=== PATIENT | male | born 1995 | race Two or more races ===

== ENCOUNTER → 2021-12-01 | Outpatient (CLI) | payer OTHER | LOC: M RAD 10:41 | PROVIDERS: ATTEND Otolaryngology | DX: J32.9 Chronic sinusitis, unspecified (principal) ==

== ENCOUNTER 2022-01-19 08:00 | Day surgery (SDC) | payer OTHER ==
[~2022-01-19] VITALS: Ht 177.8 cm; Wt 77.9 kg
[2022-01-19] MEDS ORDERED: ROCURONIUM BROMIDE 50 MG/5 ML VIAL As Ordered ONE (08:41)
[2022-01-19] MEDS ORDERED: fentaNYL 250 MCG/5 ML INJECTION As Ordered ONE (08:41)
[2022-01-19] MEDS ORDERED: propofoL 200 MG/20 ML VIAL As Ordered ONE ×2 (08:41→12:27)
[2022-01-19] MEDS ORDERED: LIDOCAINE 2% 100MG/5ML SDV (FOR ANES.) As Ordered ONE (08:41)
[2022-01-19] MEDS ORDERED: MIDAZOLAM INJ 2MG/2ML VIAL (J2250 PER 1MG) As Ordered ONE (08:42)
[2022-01-19] MEDS ORDERED: LR 1,000 ML IV SCH ×2 (10:45→13:15)
[2022-01-19] MEDS ORDERED: COCAINE 4% 4ML NASAL SOLUTION BTL As Ordered ONE (10:50)
[2022-01-19] MEDS ORDERED: METHYLENE BLUE 0.5% (5MG/ML) 10 ML AMP (PROVAYBLUE) As Ordered ONE (10:50)
[2022-01-19] MEDS ORDERED: LIDOCAINE W/EPINEPHRINE 1% 20ML VIAL As Ordered ONE (10:50)
[2022-01-19] MEDS ORDERED: OXYMETAZOLINE 0.05% NASAL SPRAY (AFRIN) As Ordered ONE (10:50)
[2022-01-19] MEDS ORDERED: KETOROLAC 60MG 2ML VIAL As Ordered ONE (11:55)
[2022-01-19] MEDS ORDERED: ONDANSETRON 4MG 2ML VIAL As Ordered ONE (11:55)
[2022-01-19] MEDS ORDERED: ACETAMINOPHEN 1000MG 100ML IV BTL (OFIRMEV) (J0131 PER 10MG) As Ordered ONE (11:55)
[2022-01-19] MEDS ORDERED: dexameTHASONE 4 MG/ML 1ML VIAL (J1100 PER 1MG) As Ordered ONE (11:55)
[2022-01-19] MEDS ORDERED: SUGAMMADEX SODIUM 500 MG/5 ML VIAL (BRIDION) As Ordered ONE (11:58)
[2022-01-19] MEDS ORDERED: fentaNYL 100 MCG/2 ML INJECTION As Ordered ONE (12:01)
[2022-01-19] MEDS ORDERED: METOCLOPRAMIDE INJ 10MG/2ML VIAL (J2765 PER 1) IV PRN (13:15)
[2022-01-19] MEDS ORDERED: fentaNYL 100 MCG/2 ML INJECTION IV PRN (13:15)
[2022-01-19] MEDS ORDERED: MEPERIDINE INJ 25 MG/ML VIAL (J2175) IV PRN (13:15)
[2022-01-19] MEDS ORDERED: ONDANSETRON 4MG 2ML VIAL IV PRN (13:15)
[2022-01-19] MEDS ORDERED: oxyCODONE 5MG TAB PO PRN (13:15)
[2022-01-19 14:29] VITALS: BP 160/88
== END 2022-01-19 14:46 | disposition home or self-care (01) ==
LOC: M SDC 08:00
PROVIDERS: ATTEND Otolaryngology
DX: J32.9 Chronic sinusitis, unspecified (principal); J33.0 Polyp of nasal cavity; R09.81 Nasal congestion; Z79.899 Other long term (current) drug therapy; Z88.6 Allergy status to analgesic agent; F17.290 Nicotine dependence, other tobacco product, uncomplicated
CPT/HCPCS: 31255; 31267; 31296; 61782; 88305; C9046; J0131; J1100; J1885; J2250; J2405; J3010; Q9968

== ENCOUNTER 2023-02-10 15:17 | Emergency (ER) | payer OTHER ==
[~2023-02-10] VITALS: Ht 177.8 cm; Wt 90.6 kg
[2023-02-10 15:46] VITALS: O2SAT 90
[2023-02-10 16:25] LABS: RSV AMPLIFICATION NEGATIVE (NEGATIVE)
[2023-02-10] MEDS ORDERED: dexAMETHasone 20MG/5ML VIAL IV ONE (17:10)
[2023-02-10] MEDS ORDERED: IPRATROPIUM 0.5MG/ALBUTEROL 2.5MG INH SOL UD 3ML (DUONEB) NEB ONE (17:10)
[2023-02-10] MEDS ORDERED: AUGMENTIN 875 MG TAB PO ONE (18:25)
[2023-02-10] MEDS ORDERED: PRED20TA PO (18:28)
[2023-02-10] MEDS ORDERED: AMOX875T2 PO (18:28)
[2023-02-10] MEDS ORDERED: VENTAER INH (18:28)
[2023-02-10 18:40] VITALS: BP 140/75; TEMP 98; O2SAT 98
== END 2023-02-10 18:48 | disposition home or self-care (01) ==
LOC: M ED 15:17
DX: J20.9 Acute bronchitis, unspecified (principal); J01.90 Acute sinusitis, unspecified; Z88.8 Allergy status to other drugs, medicaments and biological substances
CPT/HCPCS: 71046; 87631; 94640; 96374; 99284; J1100

== ENCOUNTER 2023-02-19 08:29 | Observation (INO) | payer OTHER ==
[~2023-02-19] VITALS: Ht 177.8 cm; Wt 91.4 kg
[~2023-02-19 08:29] MED LIST: AMOX875T2 PO; PRED20TA PO; VENTAER INH
[2023-02-19] MEDS ORDERED: methylPREDNISolone 125MG 2ML VIAL IV ONE (08:55)
[2023-02-19 09:35] LABS: BASO % 0.3 % (0.0-1.0); EOS # 1.1 10^3/uL (0.0-0.5); EOS % 10.6 % (0.0-3.0); HEMATOCRIT 44.3 % (42.0-52.0); HEMOGLOBIN 14.9 g/dl (13.5-17.5); LYMPH # 1.4 10^3/uL (1.5-5.0); LYMPH % 13.4 % (24.0-44.0); MEAN CORPUSCULAR HEMOGLOBIN 29.9 pg (27.0-33.0); MEAN CORPUSCULAR HGB CONC 33.6 g/dl (32.0-36.5); MONO # 0.7 10^3/uL (0.0-0.8); MONO % 6.9 % (2.0-8.0); NEUTROPHILS # 7.1 10^3/uL (1.5-8.5); NEUTROPHILS % 67.9 % (36.0-66.0); PLATELET COUNT, AUTOMATED 245 10^3/uL (150-450); RED BLOOD COUNT 4.98 10^6/uL (4.30-6.10); WHITE BLOOD COUNT 10.4 10^3/uL (4.0-10.0)
[2023-02-19] MEDS: ALBUTEROL SULFATE 2.5MG/0.5ML INH NEB SOLN INH PRN ×2 (09:52→09:53)
[2023-02-19] MEDS ORDERED: ALBUTEROL SULFATE 2.5MG/0.5ML INH NEB SOLN NEB ONE (10:00)
[2023-02-19 10:08] LABS: ALBUMIN 4.1 G/DL (3.2-5.2); ALKALINE PHOSPHATASE 73 U/L (46-116); ALT/SGPT 42 U/L (7.0-40); AST/SGOT 32 U/L (<34); BILIRUBIN,DIRECT 0.2 MG/DL (<0.4); BILIRUBIN,TOTAL 0.7 MG/DL (0.3-1.2); BLOOD UREA NITROGEN 12 MG/DL (9-23); CALCIUM LEVEL 9.3 MG/DL (8.5-10.1); CARBON DIOXIDE LEVEL 25 MMOL/L (20-31); CHLORIDE LEVEL 104 MMOL/L (98-107); CREATININE FOR GFR 0.86 MG/DL (0.70-1.30); GLOMERULAR FILTRATION RATE > 60.0 (>60); GLUCOSE, FASTING 81 MG/DL (60-100); POTASSIUM SERUM 4.6 MMOL/L (3.5-5.1); SODIUM LEVEL 137 MMOL/L (136-145); TOTAL PROTEIN 7.1 G/DL (5.7-8.2)
[2023-02-19] MEDS ORDERED: IPRATROPIUM 0.5MG/ALBUTEROL 2.5MG INH SOL UD 3ML (DUONEB) NEB ONE (11:25)
[2023-02-19 11:43] VITALS: O2SAT 97
[2023-02-19] MEDS: MAG SULF 1GM/100ML (MAG RUN) 1 GM in IV 1 EA IV SCH ×2 (12:06→12:26)
[2023-02-19] MEDS ORDERED: MED REC IN PROGRESS XX SCH (12:20)
[2023-02-19] MEDS ORDERED: MOM 30ML SUSPENSION UDC PO PRN (12:50)
[2023-02-19] MEDS ORDERED: ACETAMINOPHEN TAB 650MG DOSE (2X325MG) PO PRN (12:50)
[2023-02-19] MEDS ORDERED: MAALOX 30 ML SUSP *UDC PO PRN (12:50)
[2023-02-19] MEDS ORDERED: HOME MED LIST COMPLETE! XX SCH (13:15)
[2023-02-19] MEDS: AZITHROMYCIN 250MG TABLET PO SCH (13:19)
[2023-02-19] MEDS: guaiFENesin ER TABLET 600 MG TAB PO SCH ×2 (13:20→20:59)
[2023-02-19 13:44] LABS: PROCALCITONIN <0.04 ng/ml
[2023-02-19] MEDS: SODIUM CHLORIDE HYPERTONIC 3% 4ML NEB SOL INH SCH ×2 (14:00→20:00)
[2023-02-19] MEDS: IPRATROPIUM 0.5MG/ALBUTEROL 2.5MG INH SOL UD 3ML (DUONEB) NEB SCH ×2 (14:00→21:41)
[2023-02-19] MEDS: ENOXAPARIN 40MG/0.4ML SYRINGE (J1650 PER 10MG) SC SCH (14:09)
[2023-02-19 15:47] VITALS: BP 153/82; TEMP 98.2; O2SAT 95
[2023-02-19 20:53] VITALS: BP 149/78; TEMP 98.1; O2SAT 93
[2023-02-19] MEDS: methylPREDNISolone 125MG 2ML VIAL IV SCH (20:59)
[2023-02-20] MEDS: SODIUM CHLORIDE HYPERTONIC 3% 4ML NEB SOL INH SCH ×2 (02:09→07:20)
[2023-02-20] MEDS: IPRATROPIUM 0.5MG/ALBUTEROL 2.5MG INH SOL UD 3ML (DUONEB) NEB SCH ×2 (02:09→07:20)
[2023-02-20 06:00] VITALS: BP 151/81; TEMP 97.6; O2SAT 93
[2023-02-20 06:05] LABS: HEMOGLOBIN 14.8 g/dl (13.5-17.5); MEAN CORPUSCULAR HEMOGLOBIN 29.6 pg (27.0-33.0); MEAN CORPUSCULAR HGB CONC 33.6 g/dl (32.0-36.5); PLATELET COUNT, AUTOMATED 301 10^3/uL (150-450); WHITE BLOOD COUNT 15.2 10^3/uL (4.0-10.0)
[2023-02-20 06:44] LABS: BLOOD UREA NITROGEN 19 MG/DL (9-23); CALCIUM LEVEL 9.2 MG/DL (8.5-10.1); CARBON DIOXIDE LEVEL 23 MMOL/L (20-31); CHLORIDE LEVEL 103 MMOL/L (98-107); CREATININE FOR GFR 0.84 MG/DL (0.70-1.30); GLOMERULAR FILTRATION RATE > 60.0 (>60); GLUCOSE, FASTING 122 MG/DL (60-100); MAGNESIUM LEVEL 2.3 MG/DL (1.8-2.4); POTASSIUM SERUM 4.5 MMOL/L (3.5-5.1); SODIUM LEVEL 136 MMOL/L (136-145)
[2023-02-20] MEDS: ENOXAPARIN 40MG/0.4ML SYRINGE (J1650 PER 10MG) SC SCH (08:02)
[2023-02-20] MEDS: guaiFENesin ER TABLET 600 MG TAB PO SCH (08:02)
[2023-02-20] MEDS: AZITHROMYCIN 250MG TABLET PO SCH (08:03)
[2023-02-20] MEDS: methylPREDNISolone 125MG 2ML VIAL IV SCH (09:34)
[2023-02-20] MEDS ORDERED: DOXY-444 PO (10:03)
[2023-02-20] MEDS ORDERED: NICO14DI31 TOP (10:03)
[2023-02-20] MEDS ORDERED: CEPH500C PO (10:03)
[2023-02-20] MEDS ORDERED: PRED20TA PO (10:03)
[2023-02-20 18:07] LABS: MYCOPLASMA PNEUMONIAE IgG 123 U/mL (0-99); MYCOPLASMA PNEUMONIAE IgM <770 U/mL (0-769)
[2023-02-22 15:12] LABS: BODY FLUID CULTURE Not indicated. (.); ORGANISM ID Not indicated. (.); SPECIMEN SOURCE Urine (.); URINE STREP PNEUMONIAE ANTIGEN Negative (Negative)
== END 2023-02-20 11:05 | disposition home or self-care (01) ==
LOC: M ED 08:29 → EDBD 08:29 → M ED INP 08:30 → M MSPAV 15:45
PROVIDERS: ADMIT Student in an Organized Health Care Education/Training Program; ATTEND Internal Medicine
DX: J47.9 Bronchiectasis, uncomplicated (principal); R05.8 Other specified cough; J32.9 Chronic sinusitis, unspecified; D75.A Glucose-6-phosphate dehydrogenase (G6PD) deficiency without anemia; F17.290 Nicotine dependence, other tobacco product, uncomplicated; Z88.6 Allergy status to analgesic agent; Z83.3 Family history of diabetes mellitus; Z82.49 Family history of ischemic heart disease and other diseases of the circulatory system
CPT/HCPCS: 36415; 71046; 71250; 80048; 80076; 83735; 84145; 85025; 85027; 86140; 86738; 87040; 87077; 87186; 87205; 87486; 87581; 87633; 87641; 87798; 87899; 93041; 94640; 94760; 96365; 96366; 96372; 96375; 96376; 99285; J1650; J2930; J3475

== ENCOUNTER 2023-04-14 03:13 | Emergency (ER) | payer OTHER ==
[~2023-04-14] VITALS: Ht 167.6 cm; Wt 95.0 kg
[~2023-04-14 03:13] MED LIST changes: +CEPH500C PO; +DOXY-444 PO; +NICO14DI31 TOP
[2023-04-14] MEDS: IPRATROPIUM 0.5MG/ALBUTEROL 2.5MG INH SOL UD 3ML (DUONEB) NEB PRN ×3 (04:23→04:53)
[2023-04-14 04:39] LABS: BASO # 0.1 10^3/uL (0.0-0.2); BASO % 1.1 % (0.0-1.0); EOS # 1.1 10^3/uL (0.0-0.5); EOS % 19.4 % (0.0-3.0); HEMATOCRIT 40.4 % (42.0-52.0); HEMOGLOBIN 13.5 g/dl (13.5-17.5); LYMPH # 1.6 10^3/uL (1.5-5.0); LYMPH % 29.3 % (24.0-44.0); MEAN CORPUSCULAR HGB CONC 33.4 g/dl (32.0-36.5); MEAN CORPUSCULAR VOLUME 89.8 fl (80.0-96.0); MONO # 0.4 10^3/uL (0.0-0.8); MONO % 6.7 % (2.0-8.0); NEUTROPHILS # 2.3 10^3/uL (1.5-8.5); NEUTROPHILS % 43.1 % (36.0-66.0); PLATELET COUNT, AUTOMATED 232 10^3/uL (150-450); WHITE BLOOD COUNT 5.4 10^3/uL (4.0-10.0)
[2023-04-14 04:43] LABS: VENOUS BASE EXCESS -1.7 (-2.0-2.0); VENOUS O2 SATURATION 94.3 % (60.0-80.0); VENOUS PARTIAL PRESSURE CO2 44.2 mmHg (38.0-50.0); VENOUS PARTIAL PRESSURE O2 75.4 mmHg (30.0-50.0); VENOUS PH 7.352 UNITS (7.330-7.430); VENOUS STANDARD HCO3 22.9 MMOL/L; VENOUS TOTAL CO2 25.3 MMOL/L (24.0-28.0)
[2023-04-14 04:49] LABS: CK-MB VALUE MASS < 1.0 NG/ML (<3.6)
[2023-04-14 04:51] LABS: ALKALINE PHOSPHATASE 59 U/L (46-116); ALT/SGPT 42 U/L (7.0-40); AST/SGOT 24 U/L (<34); BILIRUBIN,DIRECT 0.1 MG/DL (<0.4); BILIRUBIN,TOTAL 0.5 MG/DL (0.3-1.2); BLOOD UREA NITROGEN 11 MG/DL (9-23); CALCIUM LEVEL 9.2 MG/DL (8.5-10.1); CARBON DIOXIDE LEVEL 26 MMOL/L (20-31); CHLORIDE LEVEL 108 MMOL/L (98-107); CPK CREATINE PHOSPHOKINASE 217 U/L (46-171); GLOMERULAR FILTRATION RATE > 60.0 (>60); GLUCOSE, FASTING 101 MG/DL (60-100); MB/CK RELATIVE INDEX 0.46 (< OR =4); POTASSIUM SERUM 3.8 MMOL/L (3.5-5.1); SODIUM LEVEL 144 MMOL/L (136-145); TOTAL PROTEIN 6.5 G/DL (5.7-8.2)
[2023-04-14] MEDS ORDERED: ISOVUE-370 76% 100ML VIAL As Ordered ONE (07:14)
[2023-04-14] MEDS ORDERED: PRED10TA2 PO (09:48)
[2023-04-14 10:05] VITALS: BP 125/73; TEMP 97.8; O2SAT 95
== END 2023-04-14 10:17 | disposition home or self-care (01) ==
LOC: M ED 03:13
DX: R06.02 Shortness of breath (principal); Z87.891 Personal history of nicotine dependence; Z88.8 Allergy status to other drugs, medicaments and biological substances; Z79.51 Long term (current) use of inhaled steroids; Z79.899 Other long term (current) drug therapy; Z79.52 Long term (current) use of systemic steroids; Z79.2 Long term (current) use of antibiotics
CPT/HCPCS: 36415; 71046; 71275; 80048; 80076; 82550; 82553; 82803; 83880; 84484; 85025; 85379; 87040; 87486; 87581; 87633; 87798; 93005; 93041; 94640; 94760; 99285; Q9967

== ENCOUNTER → 2024-07-28 | Outpatient (CLI) | payer OTHER ==
[~2024-07-28] MED LIST changes: +DOXY-440 PO; -DOXY-444 PO; +PRED10TA2 PO
== END ==
LOC: M RAD 15:26
PROVIDERS: ATTEND Otolaryngology
DX: J33.9 Nasal polyp, unspecified (principal)

== ENCOUNTER 2025-01-01 10:29 | Day surgery (SDC) | payer OTHER ==
[~2025-01-01] VITALS: Ht 177.8 cm; Wt 96.5 kg
[~2025-01-01 10:29] MED LIST changes: +ALBU8.5H; +FLUT12HF3 INH
[2025-01-01] MEDS ORDERED: LR 1,000 ML IV SCH ×3 (10:50→16:40)
[2025-01-01] MEDS ORDERED: MIDAZOLAM INJ 2 MG/2 ML VIAL As Ordered ONE (10:52)
[2025-01-01] MEDS ORDERED: dexAMETHasone 4 MG/ML 1 ML VIAL As Ordered ONE (13:04)
[2025-01-01] MEDS ORDERED: LIDOCAINE 2% 100 MG/5 ML SDV (FOR ANES.) As Ordered ONE (13:06)
[2025-01-01] MEDS ORDERED: ACETAMINOPHEN 1000MG/100ML IV BAG As Ordered ONE (13:39)
[2025-01-01] MEDS: COCAINE 4% 4 ML NASAL SOLUTION BTL As Ordered ONE (13:50)
[2025-01-01] MEDS: LIDOCAINE W/EPINEPHrine 1% 20 ML VIAL As Ordered ONE (13:50)
[2025-01-01] MEDS ORDERED: ONDANSETRON 4MG 2ML VIAL As Ordered ONE (13:54)
[2025-01-01] MEDS ORDERED: SUGAMMADEX SODIUM 200 MG/2 ML VIAL As Ordered ONE (13:57)
[2025-01-01] MEDS ORDERED: ROCURONIUM BROMIDE 50MG/5ML VIAL As Ordered ONE (13:57)
[2025-01-01] MEDS ORDERED: HYDROmorphone HCL 2 MG/ML 1 ML VIAL As Ordered ONE (14:12)
[2025-01-01] MEDS ORDERED: LABETALOL 100 MG/20 ML VIAL As Ordered ONE (14:17)
[2025-01-01] MEDS: OXYMETAZOLINE 0.05% NASAL SPRAY As Ordered ONE (14:17)
[2025-01-01] MEDS ORDERED: HYDROMORPHONE HCL 0.5 MG/0.5 ML SYRINGE IV PRN (15:40)
[2025-01-01] MEDS ORDERED: ONDANSETRON 4MG 2ML VIAL IV PRN (15:40)
[2025-01-01] MEDS ORDERED: LIDOCAINE 2% INJ 100 MG/5 ML SYRINGE As Ordered ONE (15:45)
[2025-01-01 17:43] VITALS: BP 142/85; TEMP 97.5; O2SAT 97
== END 2025-01-01 17:46 | disposition home or self-care (01) ==
LOC: M SDC 10:29
PROVIDERS: ATTEND Otolaryngology
DX: J32.4 Chronic pansinusitis (principal); J33.8 Other polyp of sinus; J44.9 Chronic obstructive pulmonary disease, unspecified; D75.A Glucose-6-phosphate dehydrogenase (G6PD) deficiency without anemia; F17.290 Nicotine dependence, other tobacco product, uncomplicated; Z79.899 Other long term (current) drug therapy; Z88.6 Allergy status to analgesic agent
CPT/HCPCS: 31259; 31267; 31276; 61782; 88305; A6024; C9143; J0131; J1100; J1171; J1920; J2250; J2405; J3010